=== PATIENT | female | born 1975 | race Hispanic/Latino ===

== ENCOUNTER 2019-07-06 23:54 | Emergency (ER) | payer BC ==
[~2019-07-06 23:54] MED LIST: AMLO10TA7 PO; CIPR-279 PO; IBUP-2070 PO
[2019-07-07 00:54] LABS: CREATININE 0.8 mg/dL (0.5-1.5); POTASSIUM 4.2 mmol/L (3.5-5.1)
[2019-07-07 01:08] LABS: THYROID STIMULATING HORMONE 3.04 uIU/mL (0.36-3.74)
[2019-07-07] MEDS ORDERED: IBUPROFEN 200 MG TAB ONE (01:32)
[2019-07-07 01:40] LABS: T4 (THYROXINE) 9.9 ug/dL (4.7-13.3)
== END 2019-07-07 02:00 | disposition home or self-care (01) ==
LOC: EDH 23:54
DX: I10 Essential (primary) hypertension (principal); R51 Headache; Z87.442 Personal history of urinary calculi; Z90.710 Acquired absence of both cervix and uterus; Z90.49 Acquired absence of other specified parts of digestive tract
CPT/HCPCS: 36415; 70450; 80048; 84436; 84443; 93005

== ENCOUNTER 2020-10-02 16:29 | Emergency (ER) | payer BC ==
[~2020-10-02 16:29] MED LIST changes: +AMLO-258 PO; -AMLO10TA7 PO
[2020-10-02 17:26] LABS: BASOPHILS % (AUTO) 0.4 % (0.0-5.0); HEMATOCRIT 42.3 % (36-48); LYMPHOCYTES % (AUTO) 4.9 % (21.0-51.0); MEAN CORPUSCULAR HEMOGLOBIN 29.5 pg (27.0-33.0); MEAN CORPUSCULAR VOLUME 84.3 fL (79-99); MONOCYTES % (AUTO) 3.6 % (3.0-13.0); NEUTROPHILS % (AUTO) 87.4 % (40.0-77.0); PLATELET COUNT (AUTO) 508 K/uL (130-400); RED BLOOD CELL COUNT(AUTO) 5.02 MIL/uL (4.00-5.50); RED CELL DISTRIBUTION WIDTH 11.8 % (11.0-15.5); WHITE BLOOD COUNT (AUTO) 16.1 K/uL (4.8-10.8)
[2020-10-02 17:39] LABS: CREATININE 0.9 mg/dL (0.5-1.5); POTASSIUM 4.4 mmol/L (3.5-5.1)
[2020-10-02 17:43] LABS: RAPID GROUP A STREP NEGATIVE (NEGATIVE)
[2020-10-02 17:44] LABS: ALBUMIN 3.3 g/dL (3.5-5.0); BILIRUBIN,TOTAL 0.5 mg/dL (0.2-1.0)
[2020-10-02] MEDS ORDERED: SODIUM CHLORIDE 0.9% 1000ML 1,000 ML IV ONE (18:28)
[2020-10-02 18:48] LABS: APPEARANCE,URINE Clear (CLEAR); BILIRUBIN,URINE Negative (NEGATIVE); COLOR,URINE Yellow (YELLOW); GLUCOSE, URINE (UA) Negative (NEGATIVE); KETONES,URINE Negative (NEGATIVE); LEUKOCYTE ESTERASE ,URINE Negative (NEGATIVE); NITRATE,URINE Negative (NEGATIVE); OCCULT BLOOD,URINE Negative (NEGATIVE); PH,URINE 7.5 (5.0-8.0); PROTEIN,URINE Negative (NEGATIVE); UROBILINOGEN,URINE 0.2 mg/dL (0.2-1.0)
[2020-10-02 18:50] LABS: HCG,QUAL RESULT NEGATIVE (NEGATIVE)
== END 2020-10-02 20:06 | disposition home or self-care (01) ==
LOC: EDH 16:29
DX: E86.0 Dehydration (principal); Z20.828 Contact with and (suspected) exposure to other viral communicable diseases; I10 Essential (primary) hypertension; E78.00 Pure hypercholesterolemia, unspecified; Z90.49 Acquired absence of other specified parts of digestive tract; Z90.710 Acquired absence of both cervix and uterus; Z98.890 Other specified postprocedural states
CPT/HCPCS: 36415; 80053; 81003; 81025; 85025; 87426; 87804 ×2; 87880; 96360; 99283; J7030; U0003